=== PATIENT | male | born 1945 | race Caucasian/White ===

== ENCOUNTER → 2024-02-15 | Day surgery (SDC) | payer MEDICARE ==
[~2024-02-15] MED LIST: Balanced Salt Ophth Irrig 15 ML BOTTLE *BULK OP SCH; Cyclopentolate 2% Ophth Soln 1 BOTTLE *BULK OP SCH; EPINEPHrine 1 MG/ML (1:1000) 1 ML AMP IR SCH; Ketorolac 0.5% Ophth Soln 5 ML Bottle *BULK OP SCH; Midazolam 2 MG/2 ML VIAL IV ONE; Phenylephrine 10% Ophth Soln 5 ML BOTTLE *BULK OP SCH; Polymyxin B Sulfate/Trimethoprim Ophth Soln 10 ML BOTTLE *BULK OP SCH; Povidone Iodine 5% Ophth Soln 30 ML BOTTLE *BULK OP SCH; Proparacaine 0.5% Ophth Soln 15 ML BOTTLE *BULK OP SCH; Tropicamide 1% Ophth Soln Bottle *BULK OP SCH; Trypan Blue 0.06% Ophth Soln 0.5 ML SYRINGE IO ONE
== END | disposition home or self-care (01) ==
LOC: MSO 08:42
DX: H25.11 Age-related nuclear cataract, right eye (principal); Z87.891 Personal history of nicotine dependence
CPT/HCPCS: 00142; J0171; J2250; V2632